=== PATIENT | female | born 1955 | race Caucasian/White ===

== ENCOUNTER 2019-07-06 13:42 | Inpatient (IN) | payer MEDICARE ==
[2019-07-06] MEDS ORDERED: IPRATROPIUM/ALBUTEROL 0.5-2.5 MG/3 ML AMPUL NEB ONE (14:08)
[2019-07-06] MEDS ORDERED: METHYLPREDNISOLONE INJ 125 MG/2 ML SDV IV ONE (14:08)
[2019-07-06 14:36] LABS: APPEARANCE,URINE CLEAR; BILIRUBIN,URINE NEGATIVE (NEGATIVE); COLOR,URINE STRAW; GLUCOSE, URINE NEGATIVE (NEGATIVE); KETONES,URINE NEGATIVE (NEGATIVE); LEUKOCYTE ESTERASE,URINE NEGATIVE (NEGATIVE); NITRITE,URINE NEGATIVE (NEGATIVE); PROTEIN,URINE NEGATIVE (NEGATIVE); URINE SPECIFIC GRAVITY 1.005; UROBILINOGEN,URINE NEGATIVE mg/dL (<2.0)
[2019-07-06 14:39] LABS: HEMATOCRIT 36.8 % (36.0-47.0); HEMOGLOBIN 11.9 g/dL (12.0-15.5); MEAN CORPUSCULAR HEMOGLOBIN 26.5 pg (27.0-33.4); MEAN CORPUSCULAR HGB CONC 32.3 g/dL (32.0-36.0); MEAN CORPUSCULAR VOLUME 82 fl (80-97); PLATELET COUNT 236 10^3/uL (150-450); RED BLOOD COUNT 4.48 10^6/uL (3.72-5.28); RED CELL DISTRIBUTION WIDTH 18.5 % (11.5-14.0); WHITE BLOOD COUNT 4.4 10^3/uL (4.0-10.5)
[2019-07-06 14:51] LABS: ALBUMIN 3.8 g/dL (3.5-5.0); ALKALINE PHOSPHATASE 110 U/L (38-126); ASPARTATE AMINO TRANSFERASE 37 U/L (14-36); BILIRUBIN,DIRECT 0.2 mg/dL (0.0-0.4); BILIRUBIN,TOTAL 0.6 mg/dL (0.2-1.3); BLOOD UREA NITROGEN 15 mg/dL (7-20); CALCIUM 9.2 mg/dL (8.4-10.2); CHLORIDE 83 mmol/L (98-107); CREATINE KINASE 72 U/L (30-135); GLUCOSE 137 mg/dL (75-110); TOTAL PROTEIN 6.1 g/dL (6.3-8.2)
[2019-07-06 14:58] LABS: ABSOLUTE LYMPHOCYTES# (MANUAL) 1.1 10^3/uL (0.5-4.7); ABSOLUTE MONOCYTES # (MANUAL) 0.2 10^3/uL (0.1-1.4); ANION GAP 9 (5-19); BASOPHILS % (MANUAL) 3 % (0-2); EOSINOPHILS % (MANUAL) 3 % (0-6); LYMPHOCYTES % (MANUAL) 25 % (13-45); METAMYELOCYTES % (MANUAL) 1 % (0); MONOCYTES % (MANUAL) 5 % (3-13); SEGMENTED NEUTROPHILS % (MAN) 63 % (42-78); TOTAL CELLS COUNTED 100
[2019-07-06 14:59] LABS: ANISOCYTOSIS 2+; OVALOCYTES 1+; PLATELET COMMENT ADEQUATE; POIKILOCYTOSIS 1+; POLYCHROMASIA SLIGHT
[2019-07-06 15:01] LABS: CARBON DIOXIDE 45 mmol/L (22-30)
--- NOTE | 2019-07-06 15:01 | ER Document Report ---
Entered by WILLY STEVENSON SCRIBE 07/06/19 1407 Acting as scribe for:HANNAH LEVY MD ED Respiratory Problem - General Chief Complaint: Shortness Of Breath Stated Complaint: DIFFICULTY BREATHING Time Seen by Provider: 07/06/19 13:54 Mode of Arrival: Ambulatory Information source: Patient Notes: Patient is a 64 year old female with stage IV breast cancer with metastasis to bone and and liver that presents to the emergency department today with complaints of increased shortness of breath. Patient reports the shortness of breath started getting worse yesterday and last night. Patient is on 3L of home oxygen 24 hours a day. Patient states she has a non-productive cough that started yesterday. Patient denies any fevers. Patient traveled here by car from [place] 5 days ago. TRAVEL OUTSIDE OF THE [place] IN LAST 30 DAYS: No - Related Data Allergies/Adverse Reactions: cephalexin [From Keflex] Allergy (Verified 07/06/19 14:21) Past Medical History - General Information source: Patient - Social History Smoking Status: Never Smoker Cigarette use (# per day): No Frequency of alcohol use: None Drug Abuse: None Lives with: Family Family History: Reviewed & Not Pertinent Malignancy Medical History: Reports: Hx Breast Cancer - stage IV, mets to bone and liver Past Surgical History: Reports: Hx Breast Surgery - left mastectomy, axillary node disection, Hx Inguinal Hernia, Hx Thyroid Surgery - thyroidectomy, Other - Pacemaker Review of Systems - Review of Systems Constitutional: denies: Fever EENT: No symptoms reported Cardiovascular: Edema - Patient and daughter report the swelling in her legs is a little more than normal. Weight Respiratory: See HPI, Cough, Short of breath Gastrointestinal: No symptoms reported Genitourinary: No symptoms reported Female Genitourinary: No symptoms reported Musculoskeletal: No symptoms reported Skin: No symptoms reported Hematologic/Lymphatic: No symptoms reported Neurological/Psychological: No symptoms reported -: Yes All other systems reviewed and negative Physical Exam - Vital signs Vitals: Temp Pulse Resp BP Pulse Ox 97.9 F 82 28 H 143/82 H 89 L 07/06/19 13:50 07/06/19 13:50 07/06/19 13:50 07/06/19 13:50 07/06/19 13:50 - Notes Notes: Physical Exam: General: Alert, cachectic. HEENT: Normocephalic. Atraumatic. PERRL. Extraocular movements intact. Oropharynx clear. Neck: Supple. Non-tender. Respiratory: Mild to moderate respiratory distress. Wheezing with forced cough. Dyspneic. Cardiovascular: Regular rate and rhythm. 2/6 systolic murmur. Abdominal: Normal Inspection. Non-tender. No distension. Normal Bowel Sounds. Back: No gross abnormalities. Extremities: Moves all four extremities. Upper extremities: Normal inspection. Normal ROM. Lower extremities: Trace edema, left greater than right. Neurological: Normal cognition. AAOx4. Normal speech. Psychological: Normal affect. Normal Mood. Skin: Warm. Dry. Normal color. Course - Vital Signs Vital signs: Temp Pulse Resp BP Pulse Ox 97.9 F 82 29 H 128/86 H 97 07/06/19 13:50 07/06/19 13:50 07/06/19 16:01 07/06/19 16:00 07/06/19 16:01 - Laboratory Result Diagrams: 07/06/19 14:16 07/06/19 14:16 Laboratory results interpreted by me: 07/06/19 07/06/19 07/06/19 14:16 14:16 14:16 Hgb 11.9 L MCH 26.5 L RDW 18.5 H Basophils % (Manual) 3 H Metamyelocytes % 1 H D-Dimer 2.49 H Potassium 3.0 L* Chloride 83 L Carbon Dioxide 45 H* Glucose 137 H AST 37 H Total Protein 6.1 L - Diagnostic Test Radiology reviewed: Image reviewed, Reports reviewed - Try to think about it but not soon CT scan of the chest shows no pulmonary emboli. Widespread bony metastatic disease. Bilateral pleural effusions and bilateral alveolar airspace disease most likely pulmonary edema. Focal nodular opacities in right middle lobe which could represent focal airspace disease. Metastatic disease cannot be excluded. - EKG Interpretation by Or EKG shows normal: Sinus rhythm, [place], Intervals, QRS Complexes, ST-T Waves Rhythm: A.Fib, A.Flutter, Other - Ventricular paced rhythm When compared to previous EKG there are: Previous EKG unavailable - Consults uLc Hartman NP Time consulted: 16:50 Consulted provider: will come to ER Critical Care Note - Critical Care Note Total time excluding time spent on procedures (mins): 35 Discharge - Discharge Clinical Impression: Shortness of breath, Pulmonary vascular congestion, Hypokalemia, Chronic atrial fibrillation, Metastatic breast cancer COPD (chronic obstructive pulmonary disease) Qualifiers: COPD type: unspecified COPD Qualified Code(s): J44.9 - Chronic obstructive pulmonary disease, unspecified Condition: Stable Disposition: ADMITTED INPATIENT Admitting Provider: Ting (Hospitalist) Unit Admitted: Telemetry Scribe Attestation: 07/06/19 15:04 I personally performed the services described in the documentation, reviewed and edited the documentation which was dictated to the scribe in my presence, and it accurately records my words and actions. I personally performed the services described in the documentation, reviewed and edited the documentation which was dictated to the scribe in my presence, and it accurately records my words and actions.
[2019-07-06] MEDS ORDERED: POTASSIUM CHLORIDE 20 MEQ PACKET PO ONE (15:02)
--- NOTE | 2019-07-06 15:09 | RADIOLOGY REPORT (SQ) ---
EXAM DESCRIPTION: CHEST SINGLE VIEW COMPLETED DATE/TIME: 07/06/2019 2:56 pm REASON FOR STUDY: SOB COMPARISON: None. EXAM PARAMETERS: NUMBER OF VIEWS: One view. TECHNIQUE: Single frontal radiographic view of the chest acquired. RADIATION DOSE: NA LIMITATIONS: None. FINDINGS: LUNGS AND PLEURA: Cannot exclude mild chronic interstitial changes. MEDIASTINUM AND HILAR STRUCTURES: No masses. Contour normal. HEART AND VASCULAR STRUCTURES: Cardiomegaly. No quan pulmonary edema. BONES: No acute findings. HARDWARE: Pacemaker. OTHER: No other significant finding. IMPRESSION: Cardiomegaly without pulmonary edema. Scoliosis. There appear to be mild chronic lung changes. TECHNICAL DOCUMENTATION: JOB ID: [id number] [employer]- All Rights Reserved Reading location - IP/workstation name: [email or web address]
--- NOTE | 2019-07-06 15:52 | RADIOLOGY REPORT (SQ) ---
EXAM DESCRIPTION: CTA CHEST COMPLETED DATE/TIME: 07/06/2019 3:38 pm REASON FOR STUDY: Worsening dyspnea, elevated d-dimer COMPARISON: Chest x-rayed done earlier the same day. TECHNIQUE: CT scan of the chest performed using helical scanning technique with dynamic intravenous contrast injection. Images reviewed with lung, soft tissue and bone windows. Reconstructed coronal and sagittal MPR images reviewed. Additional 3 dimensional post-processing performed to develop Maximal Intensity Projection images (NH P). All images stored on PACS. All CT scanners at this facility use dose modulation, iterative reconstruction, and/or weight based d osing when appropriate to reduce radiation dose to as low as reasonably achievable (ALARA). [facility]: Dose Right [facility]: CareDose [facility]: Dose Right [facility]: Teradose 4D [facility]: [employer] CONTRAST TYPE AND DOSE: contrast/concentration: Isovue 350.00 mg/ml; Total Contrast Delivered: 41.0 ml; Total Saline Delivered: 68.0 ml Contrast bolus optimized for the pulmonary arteries. Not diagnostic for the aorta. RENAL FUNCTION: BUN 15, creatinine 0.77 RADIATION DOSE: CT Rad equipment meets quality standard of care and radiation dose reduction techniq ues were employed. CTDIvol: 9.9 - 14.3 mGy. DLP: 500 mGy-cm. . LIMITATIONS: None. FINDINGS: LUNGS AND PLEURA: There are bilateral pleural effusions right greater than left. There is left apical pleural thickening. Bilateral ground-glass opacities consistent with pulmonary edema. Patchy airspace disease in the right middle lobe possibly atelectasis. Neoplasm cannot be excluded. AORTA AND GREAT VESSELS: No aneurysm. Contrast bolus not optimized for the aorta. HEART: No pericardial effusion. No significant coronary artery calcifications. PULMONARY ARTERIES: No emboli visualized in the main pulmonary arteries or the segmental branches. HILAR AND MEDIASTINAL STRUCTURES: No identified masses or abnormal nodes. HARDWARE: None in the chest. UPPER ABDOMEN: No significant findings. Limited exam. THYROID AND OTHER SOFT TISSUES: No masses. No adenopathy. BONES: Bone windows demonstrate widespread bony metastatic disease 3D MIPS: Confirm above findings. OTHER: No other significant finding. IMPRESSION: 1. No pulmonary emboli. 2. Widespread bony metastatic disease. 3. Bilateral pleural effusions and bilateral alveolar airspace disease most likely pulmonary edema. 4. Focal nodular opacities in the right middle lobe. This could represent focal airspace disease. Metastatic disease cannot be excluded. COMMENT: Quality ID # [id number]: Final reports with documentation of one or more dose reduction techniques (e.g., Automated exposure control, adjustment of the mA and/or kV according to patient size, use of iterative reconstruction technique) TECHNICAL DOCUMENTATION: JOB ID: [id number] [employer]- All Rights Reserved Reading location - IP/workstation name: [email or web address]
[2019-07-06] MEDS ORDERED: FUROSEMIDE INJ/PF 20 MG/2 ML SDV IV ONE (16:06)
[2019-07-06] MEDS ORDERED: ALBUTEROL SULFATE 0.083% NEB 2.5 MG/3 ML AMPUL NEB PRN (17:16)
[2019-07-06] MEDS ORDERED: OXYCODONE-ACETAMINOPHEN 5-325 MG TABLET PO PRN (17:16)
[2019-07-06] MEDS ORDERED: ZOLPIDEM TARTRATE 5 MG TABLET PO PRN (17:16)
[2019-07-06] MEDS ORDERED: ONDANSETRON HCL INJ/PF 4 MG/2 ML SDV IV PRN (17:16)
[2019-07-06] MEDS ORDERED: ACETAMINOPHEN 325 MG TABLET PO PRN (17:16)
[2019-07-06] MEDS ORDERED: DEXTROSE 50%-WATER 25 GM/50 ML DISP.SYRIN IV PRN ×2 (17:23)
[2019-07-06] MEDS ORDERED: DEXTROSE 40% GEL 15 GM TUBE PO PRN ×2 (17:23)
[2019-07-06] MEDS ORDERED: GLUCAGON,HUMAN RECOMB 1 MG INJ IM PRN (17:23)
--- NOTE | 2019-07-06 17:24 | Progress Note Acknowledgement ---
Progress Note Acknowledgement Progess Note Acknowledgement: I, the undersigned member of the medical staff with appropriate privileges and with supervisory authority over [Luc Hartman], a dependent practice allied health professional, acknowledge that I have reviewed the progress notes entered on this patient, and in my professional judgment believe that the assessment made and/or any care evidenced was appropriate
[2019-07-06] MEDS ORDERED: POTASSIUM CHLORIDE 20 MEQ PACKET PO SCH (17:30)
--- NOTE | 2019-07-06 17:38 | PDOC H&P ---
History of Present Illness Admission Date/PCP: 07/06/19 16:57 No local primary care Patient complains of: Shortness of breath, cough wheeze History of Present Illness: WILBERT CHACON I is a 64 year old female who presents with a past medical history significant for metastatic breast cancer to the bone and chronic COPD. Patient presents with several day history of increased shortness of breath for which she been taking her home inhalers without much relief. Patient presents and shows possible pleural effusion bilaterally small in nature along with pulmonary edema. Patient had no treatment prior to arrival all activities been aggravating factor. Past Medical History Cardiac Medical History: Reports: Atrial Fibrillation, Hypertension Pulmonary Medical History: Reports: Chronic Obstructive Pulmonary Disease (COPD) Malignancy Medical History: Reports: Breast Cancer - stage IV, mets to bone and liver Past Surgical History Past Surgical History: Reports: Other - Pacemaker Social History Information Source: Patient Lives with: Family Smoking Status: Never Smoker Frequency of Alcohol Use: None Hx Recreational Drug Use: No Drugs: None Hx Prescription Drug Abuse: No - Advance Directive Resuscitation Status: Full Code Family History Family History: Hypertension Parental Family History Reviewed: Yes Children Family History Reviewed: Yes Sibling(s) Family History Reviewed.: Yes Medication/Allergy Allergies/Adverse Reactions: cephalexin [From Keflex] Allergy (Verified 07/06/19 14:21) Review of Systems Constitutional: ABSENT: chills, fever(s), headache(s), weight gain, weight loss Eyes: ABSENT: visual disturbances Ears: ABSENT: hearing changes Cardiovascular: ABSENT: chest pain, dyspnea on exertion, edema, orthropnea, palpitations Respiratory: PRESENT: cough, dyspnea, other - Wheeze. ABSENT: hemoptysis Gastrointestinal: ABSENT: abdominal pain, constipation, diarrhea, hematemesis, hematochezia, nausea, vomiting Genitourinary: ABSENT: dysuria, hematuria Musculoskeletal: ABSENT: joint swelling Integumentary: ABSENT: rash, wounds Neurological: ABSENT: abnormal gait, abnormal speech, confusion, dizziness, focal weakness, syncope Psychiatric: ABSENT: anxiety, depression, homidical ideation, suicidal ideation Endocrine: ABSENT: cold intolerance, heat intolerance, polydipsia, polyuria Hematologic/Lymphatic: ABSENT: easy bleeding, easy bruising Physical Exam Vital Signs: Temp Pulse Resp BP Pulse Ox 97.9 F 82 29 H 128/86 H 97 07/06/19 13:50 07/06/19 13:50 07/06/19 16:01 07/06/19 16:00 07/06/19 16:01 Intake & Output 07/05/19 07/06/19 07/07/19 06:59 06:59 06:59 Weight 41.8 kg General appearance: PRESENT: no acute distress, well-developed, well-nourished Head exam: PRESENT: atraumatic, normocephalic Eye exam: PRESENT: conjunctiva pink, EOMI, PERRLA. ABSENT: scleral icterus Ear exam: PRESENT: normal external ear exam Mouth exam: PRESENT: moist, tongue midline Neck exam: ABSENT: carotid bruit, JVD, lymphadenopathy, thyromegaly Respiratory exam: PRESENT: decreased breath sounds, rales, symmetrical, unlabored, other - Mildly labored, rales in the bases, able to speak in full sentences. ABSENT: rhonchi, wheezes Cardiovascular exam: PRESENT: RRR. ABSENT: diastolic murmur, rubs, systolic murmur Pulses: PRESENT: normal dorsalis pedis pul Vascular exam: PRESENT: normal capillary refill GI/Abdominal exam: PRESENT: normal bowel sounds, soft. ABSENT: distended, guarding, mass, organolmegaly, rebound, tenderness Rectal exam: PRESENT: deferred Extremities exam: PRESENT: full ROM. ABSENT: calf tenderness, clubbing, pedal edema Neurological exam: PRESENT: alert, awake, oriented to person, oriented to place, oriented to time, oriented to situation, CN II-XII grossly intact. ABSENT: motor sensory deficit Psychiatric exam: PRESENT: appropriate affect, normal mood. ABSENT: homicidal ideation, suicidal ideation Skin exam: PRESENT: dry, intact, warm. ABSENT: cyanosis, rash Results Laboratory Results: 07/06/19 14:16 07/06/19 14:16 07/06/19 07/06/19 07/06/19 14:00 14:16 14:16 WBC 4.4 RBC 4.48 Hgb 11.9 L Hct 36.8 MCV 82 MCH 26.5 L MCHC 32.3 RDW 18.5 H Plt Count 236 Seg Neutrophils % Not Reportable Sodium 137.0 Potassium 3.0 L* Chloride 83 L Carbon Dioxide 45 H* Anion Gap 9 BUN 15 Creatinine 0.77 Est GFR ( Amer) > 60 Glucose 137 H Lactic Acid Calcium 9.2 Magnesium 1.8 Total Bilirubin 0.6 AST 37 H Alkaline Phosphatase 110 Total Protein 6.1 L Albumin 3.8 Urine Color STRAW Urine Appearance CLEAR Urine pH 8.0 Ur Specific Ama 1.005 Urine Protein NEGATIVE Urine Glucose (UA) NEGATIVE Urine Ketones NEGATIVE Urine Blood NEGATIVE Urine Nitrite NEGATIVE Ur Leukocyte Esterase NEGATIVE Urine WBC (Auto) 0 Urine RBC (Auto) 0 07/06/19 14:16 WBC RBC Hgb Hct MCV MCH MCHC RDW Plt Count Seg Neutrophils % Sodium Potassium Chloride Carbon Dioxide Anion Gap BUN Creatinine Est GFR ( Amer) Glucose Lactic Acid 1.8 Calcium Magnesium Total Bilirubin AST Alkaline Phosphatase Total Protein Albumin Urine Color Urine Appearance Urine pH Ur Specific Ama Urine Protein Urine Glucose (UA) Urine Ketones Urine Blood Urine Nitrite Ur Leukocyte Esterase Urine WBC (Auto) Urine RBC (Auto) 07/06/19 07/06/19 14:16 14:16 Creatine Kinase 72 Troponin I 0.023 Impressions: Chest X-Ray 07/06/19 13:56 IMPRESSION: Cardiomegaly without pulmonary edema. Scoliosis. There appear to be mild chronic lung changes. Chest/Abdomen CTA 07/06/19 15:03 IMPRESSION: 1. No pulmonary emboli. 2. Widespread bony metastatic disease. 3. Bilateral pleural effusions and bilateral alveolar airspace disease most li malachi pulmonary edema. 4. Focal nodular opacities in the right middle lobe. This could represent fo concepcion airspace disease. Metastatic disease cannot be excluded. Assessment and Plan - Diagnosis (1) Acute exacerbation of chronic obstructive pulmonary disease (COPD) Is this a current diagnosis for this admission?: Yes Plan: 07/06/2019-admit to [facility] with telemetry. Bronchodilators, IV steroids, and Levaquin 750 mg IV daily. We will continue to follow (2) Metastatic breast cancer Is this a current diagnosis for this admission?: Yes Plan: 07/06/2019-continue home medication include chemotherapy once medication [place] nciliation has been completed. (3) Hypokalemia Is this a current diagnosis for this admission?: Yes Plan: 07/06/2019-potassium chloride 40 mEq p.o. every 4 hours x3 doses repeat BMP in the a.m. (4) Chronic atrial fibrillation Is this a current diagnosis for this admission?: Yes Plan: 07/06/2019-continue all home medications once medication reconciliation has been complete (5) Pulmonary vascular congestion Is this a current diagnosis for this admission?: Yes Plan: 07/06/2019-patient was given IV Lasix in the ER will continue IV Lasix 40 mg every 8 hours until we see a bump in her creatinine. Patient states that she has had this fluid acute relation before most likely from her metastatic breast cancer. Patient states that Lasix and her previous event helped tremendously. We will continue to follow (6) Hyperglycemia Is this a current diagnosis for this admission?: Yes Plan: 07/06/2019-A1c. Carbohydrate diet and sliding scale insulin before meals and at bedtime. - Time Time Spent with patient: 35 or more minutes - Inpatient Certification Based on my medical assessment, after consideration of the patient's comorbidities, presenting symptoms, or acuity I expect that the services needed warrant INPATIENT care.: Yes I certify that my determination is in accordance with my understanding of Medicare's requirements for reasonable and necessary INPATIENT services [42 CFR 412.3e].: Yes Medical Necessity: Other - IV antibiotics, IV steroids
[2019-07-06] MEDS: LEVOFLOXACIN 750 MG/D5W RTU 750 MG/150 ML RTUPB IV SCH (18:51)
[2019-07-06] MEDS ORDERED: LEVALBUTEROL HCL NEB 0.63 MG/3 ML AMPUL NEB PRN (19:34)
[2019-07-06] MEDS ORDERED: ALBUTEROL SULFATE 0.083% NEB 2.5 MG/3 ML AMPUL NEB SCH (20:00)
[2019-07-06] MEDS ORDERED: IPRATROPIUM/ALBUTEROL 0.5-2.5 MG/3 ML AMPUL NEB SCH (20:00)
[2019-07-06] MEDS: BUDESONIDE NEB 0.5 MG/2 ML AMPUL NEB SCH (20:51)
[2019-07-06] MEDS: METHYLPREDNISOLONE INJ 40 MG/1 ML SDV IV SCH (21:55)
[2019-07-06] MEDS: INSULIN REG, HUMAN 100 UNIT/ML 3 ML VIAL (PYX) SUBCUT SCH (21:55)
[2019-07-06] MEDS: FUROSEMIDE INJ/PF 40 MG/4 ML SDV IV SCH (21:57)
[2019-07-06] MEDS: POTASSIUM CHLORIDE 10 MEQ CAPSULE.ER PO SCH ×2 (21:58→23:00)
[2019-07-06] MEDS: HEPARIN SOD (PORCINE) 5,000 UNIT/ML 1 ML VIAL SUBCUT SCH (21:59)
[2019-07-07] MEDS: IPRATROPIUM BROMIDE 0.02% NEB 0.5 MG/2.5 ML AMPUL NEB SCH ×2 (00:06→08:07)
[2019-07-07] MEDS: LEVALBUTEROL HCL NEB 1.25 MG/3 ML AMPUL NEB SCH ×2 (00:06→08:07)
[2019-07-07 04:34] LABS: ABSOLUTE LYMPHOCYTES (AUTO) 0.3 10^3/uL (0.5-4.7); ABSOLUTE NEUT (AUTO) 3.3 10^3/uL (1.7-8.2); BASOPHILS % (AUTO) 0.4 % (0-2); HEMOGLOBIN 11.8 g/dL (12.0-15.5); LYMPHOCYTES % (AUTO) 9.3 % (13-45); MEAN CORPUSCULAR HGB CONC 32.9 g/dL (32.0-36.0); MEAN CORPUSCULAR VOLUME 82 fl (80-97); MONOCYTES % (AUTO) 1.2 % (3-13); PLATELET COUNT 209 10^3/uL (150-450); RED BLOOD COUNT 4.39 10^6/uL (3.72-5.28); RED CELL DISTRIBUTION WIDTH 18.6 % (11.5-14.0); SEGMENTED NEUTROPHILS % (AUTO) 89.1 % (42-78); TOTAL CELLS COUNTED % (AUTO) 100 %; WHITE BLOOD COUNT 3.7 10^3/uL (4.0-10.5)
[2019-07-07 04:54] LABS: BLOOD UREA NITROGEN 15 mg/dL (7-20); CALCIUM 8.9 mg/dL (8.4-10.2); CHLORIDE 82 mmol/L (98-107); GLUCOSE 160 mg/dL (75-110); PHOSPHORUS 2.8 mg/dL (2.5-4.5)
[2019-07-07 05:03] LABS: ANION GAP 10 (5-19)
[2019-07-07 05:11] LABS: POTASSIUM 4.3 mmol/L (3.6-5.0)
[2019-07-07 05:15] LABS: CARBON DIOXIDE 43 mmol/L (22-30)
[2019-07-07] MEDS ORDERED: POTASSIUM CHLORIDE 10 MEQ CAPSULE.ER PO ONE (05:27)
[2019-07-07] MEDS: FUROSEMIDE INJ/PF 40 MG/4 ML SDV IV SCH (05:34)
[2019-07-07] MEDS: HEPARIN SOD (PORCINE) 5,000 UNIT/ML 1 ML VIAL SUBCUT SCH (05:34)
[2019-07-07] MEDS: POTASSIUM CHLORIDE 10 MEQ CAPSULE.ER PO SCH (05:35)
[2019-07-07] MEDS: METHYLPREDNISOLONE INJ 40 MG/1 ML SDV IV SCH ×3 (05:36→21:11)
[2019-07-07] MEDS: INSULIN REG, HUMAN 100 UNIT/ML 3 ML VIAL (PYX) SUBCUT SCH ×4 (08:07→21:16)
[2019-07-07] MEDS: BUDESONIDE NEB 0.5 MG/2 ML AMPUL NEB SCH ×2 (08:07→20:54)
[2019-07-07] MEDS: APIXABAN 5 MG TABLET PO SCH ×2 (09:15→21:11)
[2019-07-07] MEDS: FUROSEMIDE 40 MG TABLET PO SCH (09:15)
[2019-07-07] MEDS ORDERED: FUROSEMIDE 20 MG TABLET PO SCH (10:00)
--- NOTE | 2019-07-07 14:23 | Progress Note Acknowledgement ---
Progress Note Acknowledgement Progess Note Acknowledgement: I, the undersigned member of the medical staff with appropriate privileges and with supervisory authority over Emily Ascencio, a [facility] practice allied health professional, acknowledge that I have reviewed the progress notes entered on this patient, and in my professional judgment believe that the assessment made and/or any care evidenced was appropriate
--- NOTE | 2019-07-07 14:32 | PDOC PROGRESS REPORT ---
Subjective Progress Note for:: 07/07/19 Subjective:: The patient is a 64-year-old female with a past medical history significant for metastatic breast cancer, COPD, atrial fibrillation, hypertension who was admitted 07/06/2019 for acute on chronic respiratory failure secondary to COPD exacerbation. Patient was seen on morning rounds. She is found sitting up to the edge of the bed on her baseline oxygen requirement of 3 L/min. She does continue to have increased work of breathing and is noted to use accessory muscles and to have occasional retractions during her conversation today. However, she is speaking in full sentences and tells me that she is feeling much better. She denies fever, chills, chest pain, palpitations, dyspnea at rest, abdominal pain, nausea vomiting or diarrhea. She is hopeful to be discharged soon and she is here on vacation for her daughter's promotion. She has no other questions or concerns at this time. No concerns per nursing. Reason For Visit: ACUTE AXACERBATION OF CHRONIC COPD,METASTATIC VENITA Physical Exam Vital Signs: Temp Pulse Resp BP Pulse Ox 98.1 F 81 20 138/76 H 97 07/07/19 11:21 07/07/19 14:00 07/07/19 11:21 07/07/19 11:21 07/07/19 11:21 Intake & Output 07/06/19 07/07/19 07/08/19 06:59 06:59 06:59 Intake Total 840 Output Total 1300 Balance -1300 840 Weight 44.8 kg General appearance: PRESENT: no acute distress, cooperative, thin, well- developed Head exam: PRESENT: atraumatic, normocephalic Eye exam: PRESENT: conjunctiva pink, EOMI, PERRLA. ABSENT: scleral icterus Ear exam: PRESENT: normal external ear exam Mouth exam: PRESENT: moist, tongue midline Teeth exam: PRESENT: poor dentation Neck exam: ABSENT: carotid bruit, JVD, lymphadenopathy, thyromegaly Respiratory exam: PRESENT: accessory muscle use, decreased breath sounds - Bibasilar, prolonged expiratory phas, symmetrical, tachypnea, wheezes - Occasio nal expiratory wheeze, other - Baseline oxygen requirement. ABSENT: rales, rhonchi Cardiovascular exam: PRESENT: RRR. ABSENT: diastolic murmur, rubs, systolic murmur Pulses: PRESENT: normal dorsalis pedis pul Vascular exam: PRESENT: normal capillary refill GI/Abdominal exam: PRESENT: normal bowel sounds, soft. ABSENT: distended, guarding, mass, organolmegaly, rebound, tenderness Rectal exam: PRESENT: deferred Extremities exam: PRESENT: full ROM. ABSENT: calf tenderness, clubbing, pedal edema Musculoskeletal exam: PRESENT: ambulatory Neurological exam: PRESENT: alert, awake, oriented to person, oriented to place, oriented to time, oriented to situation, CN II-XII grossly intact. ABSENT: motor sensory deficit Psychiatric exam: PRESENT: appropriate affect, normal mood. ABSENT: homicidal ideation, suicidal ideation Skin exam: PRESENT: dry, intact, warm. ABSENT: cyanosis, rash Results Laboratory Results: 07/07/19 03:56 07/07/19 03:56 07/06/19 07/06/19 07/06/19 14:00 14:16 14:16 WBC 4.4 RBC 4.48 Hgb 11.9 L Hct 36.8 MCV 82 MCH 26.5 L MCHC 32.3 RDW 18.5 H Plt Count 236 Seg Neutrophils % Not Reportable Sodium 137.0 Potassium 3.0 L* Chloride 83 L Carbon Dioxide 45 H* Anion Gap 9 BUN 15 Creatinine 0.77 Est GFR ( Amer) > 60 Glucose 137 H Lactic Acid Calcium 9.2 Phosphorus Magnesium 1.8 Total Bilirubin 0.6 AST 37 H Alkaline Phosphatase 110 Total Protein 6.1 L Albumin 3.8 Urine Color STRAW Urine Appearance CLEAR Urine pH 8.0 Ur Specific [place] 1.005 Urine Protein NEGATIVE Urine Glucose (UA) NEGATIVE Urine Ketones NEGATIVE Urine Blood NEGATIVE Urine Nitrite NEGATIVE Ur Leukocyte Esterase NEGATIVE Urine WBC (Auto) 0 Urine RBC (Auto) 0 07/06/19 07/07/19 07/07/19 14:16 03:56 03:56 WBC 3.7 L RBC 4.39 Hgb 11.8 L Hct 36.0 MCV 82 MCH 27.0 MCHC 32.9 RDW 18.6 H Plt Count 209 Seg Neutrophils % 89.1 H Sodium 135.0 L Potassium 4.3 D Chloride 82 L Carbon Dioxide 43 H* Anion Gap 10 BUN 15 Creatinine 0.85 Est GFR ( Amer) > 60 Glucose 160 H Lactic Acid 1.8 Calcium 8.9 Phosphorus 2.8 Magnesium 1.8 Total Bilirubin AST Alkaline Phosphatase Total Protein Albumin Urine Color Urine Appearance Urine pH Ur Specific [place] Urine Protein Urine Glucose (UA) Urine Ketones Urine Blood Urine Nitrite Ur Leukocyte Esterase Urine WBC (Auto) Urine RBC (Auto) 07/06/19 07/06/19 14:16 14:16 Creatine Kinase 72 Troponin I 0.023 Impressions: Chest X-Ray 07/06/19 13:56 IMPRESSION: Cardiomegaly without pulmonary edema. Scoliosis. There appear to be mild chronic lung changes. Chest/Abdomen CTA 07/06/19 15:03 IMPRESSION: 1. No pulmonary emboli. 2. Widespread bony metastatic disease. 3. Bilateral pleural effusions and bilateral alveolar airspace disease most likely pulmonary edema. 4. Focal nodular opacities in the right middle lobe. This could represent focal airspace disease. Metastatic disease cannot be excluded. Assessment and Plan - Diagnosis (1) Acute exacerbation of chronic obstructive pulmonary disease (COPD) Is this a current diagnosis for this admission?: Yes Plan: She is empirically placed on IV Levaquin. Patient is admitted to the medical floor and continuous cardiac telemetry. She is provided supplemental oxygen as needed to maintain saturations greater than 89%. Continue scheduled and as needed nebulizer treatments. Continue IV Solu-Medrol; have begun weaning. Mucinex twice daily. Encourage pulmonary toilet with incentive spirometer, flutter valve, and ambulation. (2) Acute and chronic respiratory failure with hypoxia Is this a current diagnosis for this admission?: Yes Plan: Improved; now maintaining oxygen saturations while on her baseline oxygen requirement. However, does continue to have increased work of breathing. Management as above. (3) Chronic atrial fibrillation Is this a current diagnosis for this admission?: Yes Plan: EKG demonstrated a paced rhythm. Continue the patient's home dose of Eliquis. Does not appear that she is on calcium channel or beta blockers. Will monitor blood pressure and heart rate carefully for indications to initiate further medication treatment. Currently rate controlled with paced rhythm. (4) Hyperglycemia Is this a current diagnosis for this admission?: Yes Plan: A1c 5.4% Elevated glucose is secondary to steroid therapy. Continue carbohydrate diet and sliding scale insulin before meals and at bedtime. (5) Hypokalemia Is this a current diagnosis for this admission?: Yes Plan: Replete. Continue to monitor with daily chemistries. (6) Metastatic breast cancer Is this a current diagnosis for this admission?: Yes Plan: Continue home medication regiment; may take home medications. (7) Pulmonary vascular congestion Is this a current diagnosis for this admission?: Yes Plan: Resolved. CXR demonstrated cardiomegaly without pulmonary edema. CTA chest revealed bilateral pleural effusion with bilateral pulmonary edema. Patient was initially treated with IV furosemide. She does have slight wheezing but otherwise lung sounds are now clear. No evidence of peripheral edema. We will discontinue IV furosemide and resume her home dose of furosemide 40 mg daily. - Time Time Spent with patient: 25-34 minutes Medications reviewed and adjusted accordingly: Yes Anticipated discharge: Home Within: within 24 hours
[2019-07-07] MEDS: IPRATROPIUM/ALBUTEROL 0.5-2.5 MG/3 ML AMPUL NEB SCH (15:51)
[2019-07-07] MEDS: LEVOFLOXACIN 750 MG/D5W RTU 750 MG/150 ML RTUPB IV SCH (18:01)
[2019-07-07] MEDS: GUAIFENESIN 600 MG TABLET.SA PO SCH (21:11)
[2019-07-08] MEDS: IPRATROPIUM/ALBUTEROL 0.5-2.5 MG/3 ML AMPUL NEB SCH ×3 (00:47→15:50)
[2019-07-08] MEDS ORDERED: (PENDING PHARMACY ID) (Levothyroxine Sodium [Levothyroxine Sodium] 125 MCG) PO SCH (06:00)
[2019-07-08] MEDS ORDERED: LEVOTHYROXINE SODIUM 0.025 MG TABLET PO SCH (06:00)
[2019-07-08] MEDS ORDERED: LEVOTHYROXINE SODIUM 0.1 MG TABLET PO SCH (06:00)
[2019-07-08] MEDS: METHYLPREDNISOLONE INJ 40 MG/1 ML SDV IV SCH (06:24)
[2019-07-08 07:13] LABS: HEMOGLOBIN 11.3 g/dL (12.0-15.5); MEAN CORPUSCULAR HEMOGLOBIN 27.3 pg (27.0-33.4); MEAN CORPUSCULAR HGB CONC 33.2 g/dL (32.0-36.0); MEAN CORPUSCULAR VOLUME 82 fl (80-97); PLATELET COUNT 199 10^3/uL (150-450); RED BLOOD COUNT 4.13 10^6/uL (3.72-5.28); RED CELL DISTRIBUTION WIDTH 19.4 % (11.5-14.0)
[2019-07-08 07:16] LABS: BLOOD UREA NITROGEN 24 mg/dL (7-20); CALCIUM 8.9 mg/dL (8.4-10.2); CHLORIDE 80 mmol/L (98-107); GLUCOSE 158 mg/dL (75-110); POTASSIUM 5.6 mmol/L (3.6-5.0)
[2019-07-08 07:19] LABS: WHITE BLOOD COUNT 10.8 10^3/uL (4.0-10.5)
[2019-07-08 07:23] LABS: ANION GAP 8 (5-19); CARBON DIOXIDE 39 mmol/L (22-30)
[2019-07-08 07:37] LABS: ABSOLUTE LYMPHOCYTES# (MANUAL) 0.3 10^3/uL (0.5-4.7); ABSOLUTE MONOCYTES # (MANUAL) 0.8 10^3/uL (0.1-1.4); BASOPHILS % (MANUAL) 0 % (0-2); EOSINOPHILS % (MANUAL) 0 % (0-6); LYMPHOCYTES % (MANUAL) 3 % (13-45); MONOCYTES % (MANUAL) 7 % (3-13); SEGMENTED NEUTROPHILS % (MAN) 90 % (42-78); TOTAL CELLS COUNTED 100
[2019-07-08 07:38] LABS: ANISOCYTOSIS 2+; PLATELET COMMENT ADEQUATE; TOXIC GRANULATION SLIGHT; TOXIC VACUOLATION PRESENT
[2019-07-08] MEDS: INSULIN REG, HUMAN 100 UNIT/ML 3 ML VIAL (PYX) SUBCUT SCH ×4 (08:06→21:47)
[2019-07-08] MEDS: BUDESONIDE NEB 0.5 MG/2 ML AMPUL NEB SCH ×2 (08:47→19:48)
--- NOTE | 2019-07-08 09:26 | PDOC PROGRESS REPORT ---
Subjective Progress Note for:: 07/08/19 Subjective:: Shortness of breath cough Reason For Visit: ACUTE AXACERBATION OF CHRONIC COPD,METASTATIC VENITA Physical Exam Vital Signs: Temp Pulse Resp BP Pulse Ox 98.2 F 82 17 132/75 H 98 07/07/19 19:49 07/08/19 07:00 07/07/19 19:49 07/07/19 19:49 07/07/19 19:49 Intake & Output 07/07/19 07/08/19 07/09/19 06:59 06:59 06:59 Intake Total 1110 Output Total 1300 3 Balance -1300 1107 Weight 44.8 kg 47.8 kg General appearance: PRESENT: mild distress, thin Neck exam: ABSENT: carotid bruit, JVD, lymphadenopathy, thyromegaly Respiratory exam: PRESENT: decreased breath sounds, symmetrical, tachypnea, wheezes Cardiovascular exam: PRESENT: RRR. ABSENT: diastolic murmur, rubs, systolic murmur Pulses: PRESENT: +1 pedal pulses bilateral GI/Abdominal exam: PRESENT: normal bowel sounds, soft. ABSENT: distended, guarding, mass, organolmegaly, rebound, tenderness Extremities exam: PRESENT: full ROM. ABSENT: calf tenderness, clubbing, pedal edema Neurological exam: PRESENT: alert, awake, oriented to person, oriented to place, oriented to time, oriented to situation, CN II-XII grossly intact. ABSENT: motor sensory deficit Psychiatric exam: PRESENT: appropriate affect, normal mood. ABSENT: homicidal ideation, suicidal ideation Skin exam: PRESENT: dry, intact, warm. ABSENT: cyanosis, rash Results Laboratory Results: 07/08/19 06:14 07/08/19 06:14 07/08/19 07/08/19 06:14 06:14 WBC 10.8 H D RBC 4.13 Hgb 11.3 L Hct 34.0 L MCV 82 MCH 27.3 MCHC 33.2 RDW 19.4 H Plt Count 199 Seg Neutrophils % Not Reportable Sodium 127.1 L Potassium 5.6 H Chloride 80 L Carbon Dioxide 39 H Anion Gap 8 BUN 24 H Creatinine 0.93 Est GFR ( Amer) > 60 Glucose 158 H Calcium 8.9 07/06/19 07/06/19 14:16 14:16 Creatine Kinase 72 Troponin I 0.023 Impressions: Chest X-Ray 07/06/19 13:56 IMPRESSION: Cardiomegaly without pulmonary edema. Scoliosis. There appear to be mild chronic lung changes. Chest/Abdomen CTA 07/06/19 15:03 IMPRESSION: 1. No pulmonary emboli. 2. Widespread bony metastatic disease. 3. Bilateral pleural effusions and bilateral alveolar airspace disease most likely pulmonary edema. 4. Focal nodular opacities in the right middle lobe. This could represent focal airspace disease. Metastatic disease cannot be excluded. Assessment and Plan - Diagnosis (1) Acute exacerbation of chronic obstructive pulmonary disease (COPD) Is this a current diagnosis for this admission?: Yes Plan: She is empirically placed on IV Levaquin. Patient is admitted to the medical floor and continuous cardiac telemetry. She is provided supplemental oxygen as needed to maintain saturations greater than 89%. Continue scheduled and as needed nebulizer treatments. Continue IV Solu-Medrol; have begun weaning. Mucinex twice daily. Encourage pulmonary toilet with incentive spirometer, flutter valve, and ambulation. 07/08/2019-seem to be exacerbated this a.m. Patient tachypneic with wheezing noted. Patient jittery states that starts having more trouble breathing when she is having her breathing treatments. Will obtain an ABG at this time to determine her respiratory status. Continue spirometry, flutter valve and ambulation.. decrease steroids. reassess after chest x-ray and ABG (2) Metastatic breast cancer Is this a current diagnosis for this admission?: Yes Plan: Continue home medication regiment; may take home medications. 07/08/2019-continue home regimen (3) Hypokalemia Is this a current diagnosis for this admission?: Yes Plan: Replete. Continue to monitor with daily chemistries. 07/08/2019-potassium 5.6 this AM. Repeat stat potassium treat as necessary. (4) Chronic atrial fibrillation Is this a current diagnosis for this admission?: Yes Plan: EKG demonstrated a paced rhythm. Continue the patient's home dose of Eliquis. Does not appear that she is on calcium channel or beta blockers. Will monitor blood pressure and heart rate carefully for indications to initiate further medication treatment. Currently rate controlled with paced rhythm. 07/08/2019-stable, continue Eliquis. (5) Pulmonary vascular congestion Is this a current diagnosis for this admission?: Yes Plan: Resolved. CXR demonstrated cardiomegaly without pulmonary edema. CTA chest revealed bilateral pleural effusion with bilateral pulmonary edema. Patient was initially treated with IV furosemide. She does have slight wheezing but otherwise lung sounds are now clear. No evidence of peripheral edema. We will discontinue IV furosemide and resume her home dose of furosemide 40 mg daily. 07/08/2019-stable, continue daily Lasix. (6) Hyperglycemia Is this a current diagnosis for this admission?: Yes Plan: A1c 5.4% Elevated glucose is secondary to steroid therapy. Continue carbohydrate diet and sliding scale insulin before meals and at bedtime. 07/08/2019-stable. Elevated secondary to steroid therapy. Continue carbohydrate diet sliding scale insulin before meals and at bedtime - Time Time Spent with patient: 25-34 minutes - Inpatient Certification Based on my medical assessment, after consideration of the patient's comorbidities, presenting symptoms, or acuity I expect that the services needed warrant INPATIENT care.: Yes I certify that my determination is in accordance with my understanding of Medicare's requirements for reasonable and necessary INPATIENT services [42 CFR 412.3e].: Yes Medical Necessity: Other - Respiratory support, antibiotics,
[2019-07-08] MEDS ORDERED: EXEMESTANE 25 MG PO SCH (10:00)
[2019-07-08] MEDS ORDERED: EVEROLIMUS 10 MG PO SCH (10:00)
[2019-07-08] MEDS: GUAIFENESIN 600 MG TABLET.SA PO SCH ×2 (10:09→21:47)
[2019-07-08] MEDS: APIXABAN 5 MG TABLET PO SCH ×2 (10:09→21:47)
[2019-07-08] MEDS: PREDNISONE 20 MG TABLET PO SCH (10:09)
[2019-07-08] MEDS: FUROSEMIDE 40 MG TABLET PO SCH (10:09)
[2019-07-08 10:50] LABS: FREE T4 (FREE THYROXINE) 1.47 ng/dL (0.78-2.19)
[2019-07-08 11:04] LABS: THYROID STIMULATING HORMONE 0.15 uIU/mL (0.47-4.68)
--- NOTE | 2019-07-08 11:58 | RADIOLOGY REPORT (SQ) ---
EXAM DESCRIPTION: CT CHEST WITHOUT COMPLETED DATE/TIME: 07/08/2019 11:42 am REASON FOR STUDY: SHORTNESS OF BREATH COMPARISON: 07/06/2019. TECHNIQUE: CT scan performed of the chest without intravenous contrast. Images reviewed with lung, soft tissue and bone windows. Reconstructed coronal and sagittal MPR images reviewed. All images st ored on PACS. All CT scanners at this facility use dose modulation, iterative reconstruction, and/or weight based d osing when appropriate to reduce radiation dose to as low as reasonably achievable (ALARA). [facility]: Dose Right [facility]: CareDose [facility]: Dose Right [facility]: Teradose 4D [facility]: Smart [employer] RADIATION DOSE: CT Rad equipment meets quality standard of care and radiation dose reduction techniq ues were employed. CTDIvol: 8.8 mGy. DLP: 317 mGy-cm. mGy. LIMITATIONS: No technical limitations. FINDINGS: LUNGS AND PLEURA: Diffuse ground-glass attenuation not significantly changed. Patchy reti culonodular airspace disease in the middle lobe not significantly changed. Right pleural effusion godfrey s decreased. HILAR AND MEDIASTINAL STRUCTURES: No identified masses or abnormal nodes. No obvious aneurysm. HEART AND VASCULAR STRUCTURES: Cardiomegaly. Pacemaker. UPPER ABDOMEN: No significant findings. Limited exam. THYROID AND OTHER SOFT TISSUES: No masses. No adenopathy. BONES: Diffuse metastatic disease. HARDWARE: See above. OTHER: No other significant findings. IMPRESSION: Pulmonary edema and unchanged pulmonary nodules. Slight decrease in right pleural effus ion. TECHNICAL DOCUMENTATION: JOB ID: [id number] Quality ID # [id number]: Final reports with documentation of one or more dose reduction techniques (e.g., Au tomated exposure control, adjustment of the mA and/or kV according to patient size, use of iterative reconstruction technique) 2010 [employer]- All Rights Reserved Reading location - IP/workstation name: [email or web address]
[2019-07-08] MEDS ORDERED: SODIUM POLYSTYRENE SULFONATE 15 GM/60 ML PO ONE (12:00)
[2019-07-08 13:00] LABS: ARTERIAL BLOOD BASE EXCESS 9.7 mmol/L; ARTERIAL BLOOD H2CO3 1.41 mmol/L (1.05-1.35); ARTERIAL BLOOD HCO3 34.4 mmol/L (20-24); ARTERIAL BLOOD O2 SATURATION 96.9 % (94-98); ARTERIAL BLOOD PCO2 46.9 mmHg (35-45); ARTERIAL BLOOD PH 7.48 (7.35-7.45); ARTERIAL BLOOD PO2 84.8 mmHg (80-100); ARTERIAL BLOOD TOTAL CO2 35.8 mmol/L (21-25)
[2019-07-08] MEDS ORDERED: FUROSEMIDE INJ/PF 40 MG/4 ML SDV IV ONE (13:00)
[2019-07-08 13:01] LABS: ARTERIAL BLOOD FIO2 4L
[2019-07-08] MEDS ORDERED: LORAZEPAM 0.5 MG TABLET PO PRN (14:55)
[2019-07-08] MEDS: LEVOFLOXACIN 750 MG/D5W RTU 750 MG/150 ML RTUPB IV SCH (17:47)
--- NOTE | 2019-07-08 18:48 | EKG REPORT ---
SEVERITY:- ABNORMAL ECG - AFIB/FLUTTER AND VENTRICULAR-PACED RHYTHM : Confirmed by: Riya Zaidi 08-Jul-2019 18:47:10
[2019-07-09] MEDS: IPRATROPIUM/ALBUTEROL 0.5-2.5 MG/3 ML AMPUL NEB SCH ×2 (00:03→08:40)
[2019-07-09] MEDS: INSULIN REG, HUMAN 100 UNIT/ML 3 ML VIAL (PYX) SUBCUT SCH ×2 (07:26→12:03)
[2019-07-09 08:13] LABS: ABSOLUTE LYMPHOCYTES (AUTO) 0.5 10^3/uL (0.5-4.7); ABSOLUTE MONOCYTES (AUTO) 0.8 10^3/uL (0.1-1.4); BASOPHILS % (AUTO) 0.2 % (0-2); HEMATOCRIT 30.8 % (36.0-47.0); HEMOGLOBIN 10.2 g/dL (12.0-15.5); MEAN CORPUSCULAR HEMOGLOBIN 27.2 pg (27.0-33.4); MEAN CORPUSCULAR HGB CONC 33.2 g/dL (32.0-36.0); MEAN CORPUSCULAR VOLUME 82 fl (80-97); MONOCYTES % (AUTO) 9.5 % (3-13); PLATELET COUNT 138 10^3/uL (150-450); RED BLOOD COUNT 3.76 10^6/uL (3.72-5.28); RED CELL DISTRIBUTION WIDTH 19.7 % (11.5-14.0); SEGMENTED NEUTROPHILS % (AUTO) 84.3 % (42-78); TOTAL CELLS COUNTED % (AUTO) 100 %; WHITE BLOOD COUNT 8.3 10^3/uL (4.0-10.5)
[2019-07-09 08:33] LABS: BLOOD UREA NITROGEN 23 mg/dL (7-20); CALCIUM 8.4 mg/dL (8.4-10.2); CHLORIDE 81 mmol/L (98-107); GLUCOSE 105 mg/dL (75-110); POTASSIUM 4.8 mmol/L (3.6-5.0)
[2019-07-09] MEDS: BUDESONIDE NEB 0.5 MG/2 ML AMPUL NEB SCH (08:40)
[2019-07-09 09:09] LABS: ANION GAP 6 (5-19)
[2019-07-09 09:10] LABS: CARBON DIOXIDE 42 mmol/L (22-30)
[2019-07-09] MEDS: PREDNISONE 20 MG TABLET PO SCH (09:40)
[2019-07-09] MEDS: FUROSEMIDE 40 MG TABLET PO SCH (09:40)
[2019-07-09] MEDS: APIXABAN 5 MG TABLET PO SCH (09:40)
[2019-07-09] MEDS: GUAIFENESIN 600 MG TABLET.SA PO SCH (09:40)
--- NOTE | 2019-07-09 11:06 | PDOC DISCHARGE SUMMARY ---
General - Admit/Disc Date/PCP Admission Date/Primary Care Provider: 07/06/19 16:57 Discharge Date: 07/09/19 - Discharge Diagnosis (1) Acute exacerbation of chronic obstructive pulmonary disease (COPD) Is this a current diagnosis for this admission?: Yes (2) Metastatic breast cancer Is this a current diagnosis for this admission?: Yes (3) Hypokalemia Is this a current diagnosis for this admission?: Yes (4) Chronic atrial fibrillation Is this a current diagnosis for this admission?: Yes (5) Pulmonary vascular congestion Is this a current diagnosis for this admission?: Yes (6) Hyperglycemia Is this a current diagnosis for this admission?: Yes - Additional Information Resuscitation Status: Full Code Discharge Diet: As Tolerated Discharge Activity: Activity As Tolerated Prescriptions: Prednisone [Deltasone 20 mg Tablet] 20 mg PO DAILY #5 tablet Furosemide [Lasix 40 mg Tablet] 40 mg PO QAM #30 tablet Levofloxacin [Levaquin 750 mg Tablet] 750 mg PO DAILY #5 tablet Levothyroxine Sodium [Synthroid 0.075 mg Tablet] 0.075 mg PO Q6AM #30 tablet Home Medications: Albuterol Sulfate [Albuterol Sulfate Hfa] 2 puff IH QID 07/06/19 Apixaban [Eliquis 5 mg Tablet] 5 mg PO Q12 07/06/19 Everolimus [Afinitor] 10 mg PO DAILY 07/06/19 Exemestane [Aromasin] 25 mg PO DAILY 07/06/19 Fluticasone/Vilanterol [Breo 100-25 Mcg Ellipta 14 Dose/Dpi] 1 puff IH DAILY 07/06/19 Tiotropium [place] [Spiriva Respimat] 2 puff IH BID 07/06/19 Furosemide [Lasix 40 mg Tablet] 40 mg PO QAM #30 tablet 07/09/19 Levofloxacin [Levaquin 750 mg Tablet] 750 mg PO DAILY #5 tablet 07/09/19 Levothyroxine Sodium [Synthroid 0.075 mg Tablet] 0.075 mg PO Q6AM #30 tablet 07/09/19 Prednisone [Deltasone 20 mg Tablet] 20 mg PO DAILY #5 tablet 07/09/19 History of Present Illness Patient complains of: None this a.m. History of Present Illness: WILBERT CHACON I is a 64 year old female who presents with a past medical history significant for metastatic breast cancer to the bone and chronic COPD. Patient presents with several day history of increased shortness of breath for which she been taking her home inhalers without much relief. Patient presents and shows possible pleural effusion bilaterally small in nature along with pulmonary edema. Patient had no treatment prior to arrival all activities been ag gravating factor. Hospital Course Hospital Course: Patient presented ER with shortness of breath that persisted with a known history of COPD and metastatic breast cancer. Patient found to be in exacerbation of her chronic COPD was admitted to the medical surgical floor. Patient treated with bronchodilators, IV steroids and Levaquin. Patient was also found to have some pulmonary congestion most likely secondary to her metastatic breast cancer. Patient was given IV Lasix with good response. Patient has subsequently improved sufficiently return home today. I will send her home on prednisone 20 g p.o. daily x5 days, Levaquin 750 mg p.o. daily x5 days, I will also give her Synthroid 75 mcg p.o. daily and she will need a repeat TSH T4 in 2 months. Patient will also continue all home medications as previous including her chemotherapy agents. Patient return to ER she has a further complaints or concerns. Physical Exam Vital Signs: Temp Pulse Resp BP Pulse Ox 97.8 F 82 21 H 110/68 97 07/08/19 23:32 07/09/19 08:40 07/09/19 08:40 07/09/19 06:15 07/09/19 08:40 Intake & Output 07/08/19 07/09/19 07/10/19 06:59 06:59 06:59 Intake Total 1110 630 Output Total 3 Balance 1107 630 Weight 47.8 kg 47.8 kg General appearance: PRESENT: no acute distress, well-developed, well-nourished Head exam: PRESENT: atraumatic, normocephalic Eye exam: PRESENT: conjunctiva pink, EOMI, PERRLA. ABSENT: scleral icterus Ear exam: PRESENT: normal external ear exam Mouth exam: PRESENT: moist, tongue midline Teeth exam: PRESENT: edentulous Neck exam: ABSENT: carotid bruit, JVD, lymphadenopathy, thyromegaly Respiratory exam: PRESENT: clear to auscultation maxi, symmetrical, unlabored. ABSENT: rales, rhonchi, wheezes Cardiovascular exam: PRESENT: RRR. ABSENT: diastolic murmur, rubs, systolic murmur Pulses: PRESENT: normal dorsalis pedis pul Vascular exam: PRESENT: normal capillary refill GI/Abdominal exam: PRESENT: normal bowel sounds, soft. ABSENT: distended, guarding, mass, organolmegaly, rebound, tenderness Rectal exam: PRESENT: deferred Extremities exam: PRESENT: full ROM. ABSENT: calf tenderness, clubbing, pedal edema Neurological exam: PRESENT: alert, awake, oriented to person, oriented to place, oriented to time, oriented to situation, CN II-XII grossly intact. ABSENT: motor sensory deficit Psychiatric exam: PRESENT: appropriate affect, normal mood. ABSENT: homicidal ideation, suicidal ideation Skin exam: PRESENT: dry, intact, warm. ABSENT: cyanosis, rash Results Laboratory Results: 07/09/19 07:49 07/09/19 07:49 07/08/19 07/08/19 07/09/19 09:58 12:45 07:49 WBC 8.3 RBC 3.76 Hgb 10.2 L Hct 30.8 L MCV 82 MCH 27.2 MCHC 33.2 RDW 19.7 H Plt Count 138 L Seg Neutrophils % 84.3 H Carbonic Acid 1.41 H HCO3/H2CO3 Ratio 24:1 ABG pH 7.48 H ABG pCO2 46.9 H ABG pO2 84.8 ABG HCO3 34.4 H ABG O2 Saturation 96.9 ABG Base Excess 9.7 FiO2 4L Sodium Potassium Chloride Carbon Dioxide Anion Gap BUN Creatinine Est GFR ( Amer) Glucose Calcium TSH 0.15 L Free T4 1.47 07/09/19 07:49 WBC RBC Hgb Hct MCV MCH MCHC RDW Plt Count Seg Neutrophils % Carbonic Acid HCO3/H2CO3 Ratio ABG pH ABG pCO2 ABG pO2 ABG HCO3 ABG O2 Saturation ABG Base Excess FiO2 Sodium 129.1 L Potassium 4.8 Chloride 81 L Carbon Dioxide 42 H* Anion Gap 6 BUN 23 H Creatinine 0.97 Est GFR ( Amer) > 60 Glucose 105 Calcium 8.4 TSH Free T4 07/06/19 07/06/19 14:16 14:16 Creatine Kinase 72 Troponin I 0.023 Impressions: Chest X-Ray 07/06/19 13:56 IMPRESSION: Cardiomegaly without pulmonary edema. Scoliosis. There appear to be mild chronic lung changes. Chest/Abdomen CTA 07/06/19 15:03 IMPRESSION: 1. No pulmonary emboli. 2. Widespread bony metastatic disease. 3. Bilateral pleural effusions and bilateral alveolar airspace disease most likely pulmonary edema. 4. Focal nodular opacities in the right middle lobe. This could represent focal airspace disease. Metastatic disease cannot be excluded. Chest CT 07/08/19 00:00 IMPRESSION: Pulmonary edema and unchanged pulmonary nodules. Slight decrease in right pleural effusion. Qualifiers - * PATIENT BEING DISCHARGED WITH ANY OF THE FOLLOWING DIAGNOSIS: No Acute Heart Failure - Is this a Heart Failure Patient?: No Plan Time Spent: Greater than 30 Minutes
[2019-07-09 13:14] VITALS: BP 116/74
[2019-07-11] MEDS ORDERED: LEVOTHYROXINE SODIUM 0.075 MG TABLET PO SCH (06:00)
== END 2019-07-09 16:10 | disposition home or self-care (01) | DRG 189 ==
LOC: ER 13:42 → EH 16:57 → 4S 18:10
PROVIDERS: ADMIT Hospitalist; ATTEND Hospitalist
DX: J96.21 Acute and chronic respiratory failure with hypoxia (principal); J44.1 Chronic obstructive pulmonary disease with (acute) exacerbation; C78.7 Secondary malignant neoplasm of liver and intrahepatic bile duct; C79.51 Secondary malignant neoplasm of bone; J81.1 Chronic pulmonary edema; I48.2 Chronic atrial fibrillation; C50.919 Malignant neoplasm of unspecified site of unspecified female breast; E89.0 Postprocedural hypothyroidism; E87.6 Hypokalemia; R73.9 Hyperglycemia, unspecified; Z95.0 Presence of cardiac pacemaker; Z90.12 Acquired absence of left breast and nipple; Z79.01 Long term (current) use of anticoagulants; Z79.2 Long term (current) use of antibiotics; Z79.51 Long term (current) use of inhaled steroids; Z79.52 Long term (current) use of systemic steroids; Z79.899 Other long term (current) drug therapy
CPT/HCPCS: 36415; 36600; 71045; 71250; 71275; 80048; 80053; 81001; 82550; 82803; 82962; 83036; 83605; 83735; 84100; 84132; 84439; 84443; 84484; 85025; 85379; 87040; 93005; 93010; 94640; 94660; 94667; 94799; 96374; 96375; 99291; J1644; J1815; J1940; J1956; J2405; J2920; J2930; J3490; J7512; J7614; J7620

== ENCOUNTER 2020-01-20 00:08 | Emergency (ER) | payer MEDICARE ==
--- NOTE | 2020-01-20 00:25 | ER Document Report ---
ED Medical Screen (RME) - General TRAVEL OUTSIDE OF THE [place] IN LAST 30 DAYS: No <LEODAN RIDDLE - Last Filed: 01/20/20 00:22> <KEREN VOGEL - Last Filed: 01/20/20 01:02> - General Chief Complaint: Foot Pain Stated Complaint: RIGHT FOOT PAIN/SWOLLEN Time Seen by Provider: 01/20/20 00:18 Notes: HPI: 64-year-old female who is oxygen dependent with a history of breast cancer, COPD presenting tonight for right foot numbness swelling and discomfort. States it began 2 hours ago. Was fairly sudden. States the discomfort and numbness seem to go up to the mid calf region. Patient is on Eliquis currently. I have greeted and performed a rapid initial assessment of this patient. A comprehensive ED assessment and evaluation of the patient, analysis of test results and completion of the medical decision making process will be conducted by additional ED providers PHYSICAL EXAMINATION: There is edema to the right foot extending to the level of the ankle, pulses are very poor, capillary refill in the right foot approximating 5 to 6 seconds, less than 3 seconds in the left foot and toes. There is discoloration of the right toes. Reports numbness over the right foot on palpation discussed with CN and Dr. Lugo regarding bedding. Nursing to get doppler for pulse (LEODAN RIDDLE) - Related Data Allergies/Adverse Reactions: cephalexin [From Keflex] Allergy (Verified 07/06/19 14:21) Past Medical History - Past Medical History Cardiac Medical History: Reports: Hx Atrial Fibrillation, Hx Hypertension Pulmonary Medical History: Reports: Hx COPD Malignancy Medical History: Reports: Hx Breast Cancer - stage IV, mets to bone and liver Past Surgical History: Reports: Hx Abdominal Surgery - hernia repair, Hx Breast Surgery - left mastectomy, axillary node disection, Hx Cardiac Surgery - pacemaker, Hx Inguinal Hernia, Hx Thyroid Surgery - thyroidectomy, Other - Pacemaker <LEODAN RIDDLE - Last Filed: 01/20/20 00:22> Physical Exam - Vital signs Vitals: Temp Pulse Resp BP Pulse Ox 97.9 F 85 19 134/72 H 99 01/20/20 00:13 01/20/20 00:13 01/20/20 00:13 01/20/20 00:13 01/20/20 00:13 Course - Laboratory Result Diagrams: 01/20/20 00:37 01/20/20 00:37 <KEREN VOGEL - Last Filed: 01/20/20 01:02> - Vital Signs Vital signs: Temp Pulse Resp BP Pulse Ox 97.7 F 85 22 H 136/82 H 100 01/20/20 00:30 01/20/20 00:13 01/20/20 00:30 01/20/20 00:29 01/20/20 00:30 - Laboratory Laboratory results interpreted by me: 01/20/20 00:37 PT 19.1 H
[2020-01-20 00:57] LABS: INTERNATIONAL RATION (INR) 1.59; PROTHROMBIN TIME 19.1 SEC (11.4-15.4)
[2020-01-20 01:00] LABS: ABSOLUTE BASOPHILS # (AUTO) 0.1 10^3/uL (0.0-0.2); ABSOLUTE LYMPHOCYTES (AUTO) 0.6 10^3/uL (0.5-4.7); ABSOLUTE MONOCYTES (AUTO) 0.8 10^3/uL (0.1-1.4); ABSOLUTE NEUT (AUTO) 9.2 10^3/uL (1.7-8.2); BASOPHILS % (AUTO) 0.7 % (0-2); EOSINOPHILS % (AUTO) 0.4 % (0-6); HEMOGLOBIN 10.2 g/dL (12.0-15.5); LYMPHOCYTES % (AUTO) 5.7 % (13-45); MEAN CORPUSCULAR HEMOGLOBIN 27.9 pg (27.0-33.4); MONOCYTES % (AUTO) 7.5 % (3-13); SEGMENTED NEUTROPHILS % (AUTO) 85.7 % (42-78); TOTAL CELLS COUNTED % (AUTO) 100 %
[2020-01-20 01:09] LABS: RED BLOOD COUNT 3.66 10^6/uL (3.72-5.28); WHITE BLOOD COUNT 10.9 10^3/uL (4.0-10.5)
[2020-01-20 01:10] LABS: HEMATOCRIT 31.4 % (36.0-47.0); MEAN CORPUSCULAR HGB CONC 32.6 g/dL (32.0-36.0); MEAN CORPUSCULAR VOLUME 86 fl (80-97); PLATELET COUNT 69 10^3/uL (150-450); RED CELL DISTRIBUTION WIDTH 18.9 % (11.5-14.0)
[2020-01-20 01:20] LABS: ALBUMIN 3.1 g/dL (3.5-5.0); ALKALINE PHOSPHATASE 574 U/L (38-126); ASPARTATE AMINO TRANSFERASE 113 U/L (14-36); BILIRUBIN,DIRECT 0.3 mg/dL (0.0-0.4); BLOOD UREA NITROGEN 13 mg/dL (7-20); CHLORIDE 83 mmol/L (98-107); GLUCOSE 120 mg/dL (75-110); POTASSIUM 4.4 mmol/L (3.6-5.0); TOTAL PROTEIN 5.4 g/dL (6.3-8.2)
--- NOTE | 2020-01-20 01:24 | ER Document Report ---
ED General - General Chief Complaint: Foot Pain Stated Complaint: RIGHT FOOT PAIN/SWOLLEN Time Seen by Provider: 01/20/20 00:18 Mode of Arrival: Ambulatory Information source: Patient Notes: This 64-year-old woman presents to the emergency department with a complaint of bilateral lower extremity swelling, she notes that she has pain in the right foot and numbness on the top and sides of the foot. States that her symptoms began at approximately 10:00 PM tonight. She denies a history of similar episodes and denies shortness of breath or chest pain. TRAVEL OUTSIDE OF THE [place] IN LAST 30 DAYS: No - Related Data Allergies/Adverse Reactions: cephalexin [From Keflex] Allergy (Verified 07/06/19 14:21) Past Medical History - Social History Smoking Status: Never Smoker Chew tobacco use (# tins/day): No Frequency of alcohol use: None Drug Abuse: None Family History: Hypertension Patient has suicidal ideation: No Patient has homicidal ideation: No - Past Medical History Cardiac Medical History: Reports: Hx Atrial Fibrillation, Hx Hypertension Pulmonary Medical History: Reports: Hx COPD Malignancy Medical History: Reports: Hx Breast Cancer - stage IV, mets to bone and liver Past Surgical History: Reports: Hx Abdominal Surgery - hernia repair, Hx Breast Surgery - left mastectomy, axillary node disection, Hx Cardiac Surgery - pacemaker, Hx Inguinal Hernia, Hx Thyroid Surgery - thyroidectomy, Other - Pacemaker Review of Systems - Review of Systems Notes: Constitutional: Negative for fever. HENT: Negative for sore throat. Eyes: Negative for visual changes. Cardiovascular: Negative for chest pain. Respiratory: Negative for shortness of breath. Gastrointestinal: Negative for abdominal pain, vomiting or diarrhea. Genitourinary: Negative for dysuria. Musculoskeletal: + Right lower extremity swelling, + right foot pain, + left lower extremity swelling Skin: Negative for rash. Neurological: Negative for headaches, weakness or numbness. 10 point ROS negative except as marked above and in HPI. Physical Exam - Vital signs Vitals: Temp Pulse Resp BP Pulse Ox 97.9 F 85 19 134/72 H 99 01/20/20 00:13 01/20/20 00:13 01/20/20 00:13 01/20/20 00:13 01/20/20 00:13 - Notes Notes: PHYSICAL EXAMINATION: Physical Exam: General: Frail elderly woman in no acute distress complaining of lower extremity swelling/+ right foot pain HEENT: NC/AT, pupils equal round and reactive to light, MM moist,nares clear, oropharynx clear, airway patent Neck: supple, no adenopathy, no masses. Good range of motion Lungs: clear, no wheezing, no rales no rhonchi CVS: Regular rate and rhythm no murmur gallop or rub, right chest wall pacemaker device. Abdomen: Soft, active, nontender, no masses, no hepatosplenomegaly Ext: 2+ edema lower extremities. + Right leg cooler than the left from the knee down. Neuro: Alert and responsive, moving all 4 extremities on command, cranial nerves intact, no focal findings Skin: Intact no open lesions, no rash PSYCH: Normal mood, normal affect. Course - Re-evaluation Re-evalutation: 01/20/20 02:27 A CTA of the lower extremities was ordered, labs noted to have elevated troponin at 0.108, she denies chest pain or worsening shortness of breath. EKG performed reveals atrial fib/flutter with ventricular paced rhythm, compared to previous EKG dated 07/06/2019 no acute changes are noted. I have explained to the patient that her numbers are significantly elevated for troponin and BNP, given her vascular compromise in the lower extremity right side and elevation of troponin and BNP, she will need to be transferred to a hospital that has both cardiology and vascular surgery capability. The patient is in agreement with that plan and is in agreement to be transferred to [facility]. Transfer center at [facility] was contacted and Dr. Olmos has accepted the patient in transfer. - Vital Signs Vital signs: Temp Pulse Resp BP Pulse Ox 97.7 F 85 22 H 136/82 H 100 01/20/20 00:30 01/20/20 00:13 01/20/20 00:30 01/20/20 00:29 01/20/20 00:30 - Laboratory Result Diagrams: 01/20/20 00:37 01/20/20 00:37 Laboratory results interpreted by me: 01/20/20 01/20/20 01/20/20 00:37 00:37 00:37 WBC 10.9 H RBC 3.66 L Hgb 10.2 L Hct 31.4 L RDW 18.9 H Plt Count 69 L Lymph % (Auto) 5.7 L Absolute Neuts (auto) 9.2 H Seg Neutrophils % 85.7 H PT 19.1 H Sodium 134.9 L Chloride 83 L Carbon Dioxide 46 H* Creatinine 0.51 L Glucose 120 H AST 113 H ALT 43 H Alkaline Phosphatase 574 H NT-Pro-B Natriuret Pep Total Protein 5.4 L Albumin 3.1 L 01/20/20 00:37 WBC RBC Hgb Hct RDW Plt Count Lymph % (Auto) Absolute Neuts (auto) Seg Neutrophils % PT Sodium Chloride Carbon Dioxide Creatinine Glucose AST ALT Alkaline Phosphatase NT-Pro-B Natriuret Pep 6090 H Total Protein Albumin - Diagnostic Test Radiology reviewed: Image reviewed, Reports reviewed - Chest x-ray: Patient has developed interval development of moderate size left pleural effusion with opacity of the left mid and lower lung zones. Radiologist also notes blastic bone metastasis. Discharge - Discharge Clinical Impression: Peripheral arterial disease, Pain in right foot, Elevated troponin I level, Metastatic breast cancer Congestive heart failure Qualifiers: Heart failure type: unspecified Heart failure chronicity: unspecified Qualified Code(s): I50.9 - Heart failure, unspecified COPD (chronic obstructive pulmonary disease) Qualifiers: COPD type: unspecified COPD Qualified Code(s): J44.9 - Chronic obstructive pulmonary disease, unspecified Condition: Stable Disposition: [facility]
[2020-01-20 01:28] LABS: ANION GAP 6 (5-19); CARBON DIOXIDE 46 mmol/L (22-30)
[2020-01-20] MEDS ORDERED: HEPARIN SOD (PORCINE) 1,000 UNIT/ML 10 ML VIAL IV ONE (01:50)
[2020-01-20] MEDS ORDERED: HEPARIN SODIUM,PORCINE/D5W 25,000 UNIT/250 ML RTUINJ IV PRN (01:54)
--- NOTE | 2020-01-20 01:55 | RADIOLOGY REPORT (SQ) ---
EXAM DESCRIPTION: AP portable view of the chest CLINICAL HISTORY: 64 years Female, Swelling COMPARISON: Portable view of the chest July 06, 2019 FINDINGS: Lungs: Opacification is present in the left mid and lower lung zone and there is a moderate left pleural effusion. Apical pleural parenchymal scarring is noted. The right lung is clear. Mediastinum: Heart size is enlarged and the mediastinum is widened. Pacemaker is in place. Bones: Degenerative changes noted in the shoulder joints and there is endplate spondylosis in the spine. There appears to be abnormal blastic bone lesions in the left ribs. IMPRESSION: 1. Interval development of a moderate-sized left pleural effusion with opacification of the left mid and lower lung zone. 2. Blastic bone metastases.
--- NOTE | 2020-01-20 02:27 | RADIOLOGY REPORT (SQ) ---
CTA of the right lower extremity: 01/20/2020 1:20 AM CDT TECHNIQUE: Multiple axial contiguous images were obtained through the right lower extremity with intravenous contrast administered. Multiplanar MIP reconstructed images were also obtained. Coronal and sagittal reconstructed images were also obtained and examined. This exam was performed according to our departmental dose-optimization program, which includes automated exposure control, adjustment of the mA and/or KV according to the patient's size and/or use of iterative reconstruction technique. COMPARISON: None available HISTORY: 64-year old patient with right lower extremity pain and swelling. FINDINGS: The bones have a mottled appearance, consistent with diffuse bony metastatic disease. There is a small amount of free intraperitoneal fluid within the abdomen or pelvis. There is a mass seen adjacent to the right inferior pubic ramus, likely representing a metastatic lesion. This measures at least 3.7 x 2.6 cm. This extends into the adjacent pectineus and obturator internus musculature. The right common iliac artery demonstrates significant occlusion at the bifurcation of the right external and internal iliac arteries. This causes at least 75 % occlusion. This is likely due to thrombus, less likely a mass. This measures at least 1.5 cm in craniocaudad dimension. The visualized portions of the right common femoral, femoral, profunda femoris, and popliteal arteries appear to be patent. There is a three-vessel runoff to the level of the mid calf region. There is reticulation within the subcutaneous soft tissues suggesting underlying edema or cellulitis. There are post procedure changes seen at the distal first metatarsal phalangeal joint region. There is as portions of the hepatic parenchyma has a heterogeneous appearance. IMPRESSION: There is a hypodense filling defect within the distal right common iliac artery bifurcation to the right external and internal iliac arteries causing at least 75% stenosis. This measures at least 1.5 cm in craniocaudad dimension. This may represent a thrombus or less likely a mass. There is trace free intraperitoneal fluid. The liver has a heterogeneous appearance which may be secondary. The bones have an mottled appearance suggestive of diffuse metastatic disease. There is a 3.7 cm mass seen at the right pectineus and obturator musculature which likely arises from the right inferior pubic ramus..
[2020-01-20] MEDS ORDERED: IPRATROPIUM/ALBUTEROL 0.5-2.5 MG/3 ML AMPUL NEB ONE (02:59)
--- NOTE | 2020-01-20 03:27 | ER Document Report ---
Doctor's Note Notes: 01/20/20 03:25 Transport has arrived to take patient to [facility]. Per this MDs direct observation, currently the patient is sitting up in bed, awake and alert and is in no acute distress.
[2020-01-20 03:41] VITALS: BP 132/73
--- NOTE | 2020-01-20 12:32 | EKG REPORT ---
SEVERITY:- ABNORMAL ECG - AFIB/FLUTTER AND VENTRICULAR-PACED RHYTHM : Confirmed by: Addie Barajas MD 20-Jan-2020 12:32:05
== END 2020-01-20 03:41 | disposition short-term general hospital (02) ==
LOC: ER 00:08
DX: I73.9 Peripheral vascular disease, unspecified (principal); I11.0 Hypertensive heart disease with heart failure; I50.9 Heart failure, unspecified; C50.919 Malignant neoplasm of unspecified site of unspecified female breast; C79.51 Secondary malignant neoplasm of bone; J90 Pleural effusion, not elsewhere classified; M79.671 Pain in right foot; R20.0 Anesthesia of skin; J44.9 Chronic obstructive pulmonary disease, unspecified; R60.0 Localized edema; R79.89 Other specified abnormal findings of blood chemistry; I48.91 Unspecified atrial fibrillation; I49.02 Ventricular flutter; Z88.1 Allergy status to other antibiotic agents
CPT/HCPCS: 93005; 94640; 99285; 96365; 96366; 36415; 85025; 85610; 85730; 80053; 84484; 83880; 71045; 73706; 93010; J1644 ×2; A9270; J7620